=== PATIENT | male | born 1950 | race Caucasian/White ===

== ENCOUNTER 2022-04-05 07:43 | Emergency (ER) | payer OTHER, MEDICAID ==
[~2022-04-05] VITALS: Ht 175.3 cm; Wt 95.7 kg
[2022-04-05 07:52] VITALS: BP 162/72
== END 2022-04-05 09:24 | disposition home or self-care (01) ==
LOC: MED 07:43
DX: M25.562 Pain in left knee (principal); E11.9 Type 2 diabetes mellitus without complications; W19.XXXA Unspecified fall, initial encounter; Y93.89 Activity, other specified; Y92.89 Other specified places as the place of occurrence of the external cause; Y99.8 Other external cause status
CPT/HCPCS: 73562; 99283

== ENCOUNTER 2022-10-07 06:50 | Inpatient (IN) | payer OTHER, MEDICAID ==
[~2022-10-07] VITALS: Ht 167.6 cm; Wt 92.1 kg
--- NOTE | 2022-10-07 06:57 | NUR ---
PT BIBA BLS TO ER BED 12.
[2022-10-07 07:03] VITALS: BP 160/90
[2022-10-07] MEDS ORDERED: ONDANSETRON 4 MG/2 ML VIAL IVP ONE ×2 (07:05→07:10)
[2022-10-07] MEDS ORDERED: MORPHINE SULFATE 4 MG/ML SYR IVP ONE ×3 (07:05→08:10)
[2022-10-07] MEDS ORDERED: NACL 0.9% 500 ML IV ONE ×2 (07:05→07:10)
--- NOTE | 2022-10-07 07:18 | NUR ---
Patient lying in bed, A/Ox4, chest rise and fall symmetrical, no s/s of distress. Addendum: 10/07/22 at 0718 by [email or web address] Patient lying in bed, A/Ox4, chest rise and fall symmetrical, no s/s of distress, patient on monitor.
--- NOTE | 2022-10-07 07:30 | NUR ---
Received report from DORETHA Naqvi. Assumed care at this time.
--- NOTE | 2022-10-07 07:39 | NUR ---
Change of shift report given to AM shift nurse Kael COYNE. AM shift nurse Kael RN verbalized understanding of report, no further questions.
[2022-10-07 07:41] LABS: BASOPHILS % (AUTO) 0.3 % (0.0-2.0); EOSINOPHILS # (AUTO) 0.6 K/uL (0-0.4); EOSINOPHILS % (AUTO) 7.1 % (0.0-4.0); HEMATOCRIT 35.1 % (36-52); LYMPHOCYTES # (AUTO) 0.9 K/uL (2.0-11.5); LYMPHOCYTES % (AUTO) 11.2 % (20.5-51.1); MEAN CORPUSCULAR HEMOGLOBIN 31 pg (27-31); MEAN CORPUSCULAR HGB CONC 34 g/dL (33-37); MONOCYTES # (AUTO) 0.7 K/uL (0.8-1.0); MONOCYTES % (AUTO) 8.6 % (1.7-9.3); NEUTROPHILS # (AUTO) 5.8 K/uL (1.8-7.7); NEUTROPHILS % (AUTO) 72.8 % (42.2-75.2); PLATELET COUNT (AUTO) 131 K/uL (140-450); RED BLOOD CELL COUNT(AUTO) 3.85 MIL/uL (4.20-6.10); RED CELL DISTRIBUTION WIDTH 14.9 % (11.6-13.7); WHITE BLOOD COUNT (AUTO) 7.9 K/uL (4.8-10.8)
[2022-10-07 08:02] LABS: ANION GAP 12.9 (8-16); CARBON DIOXIDE 27.1 mmol/L (21-32); CREATININE 1.6 mg/dL (0.6-1.3); TOTAL BILIRUBIN 1.4 mg/dL (0.0-1.0)
[2022-10-07] MEDS ORDERED: ZOLPIDEM 10 MG TAB PO PRN (10:20)
[2022-10-07] MEDS ORDERED: DOCUSATE SODIUM 100 MG GELCAP PO PRN (10:20)
[2022-10-07] MEDS ORDERED: MAG SULF 2000 MG/WATER PREMIX 50 ML IV PRN (10:20)
[2022-10-07] MEDS ORDERED: POTASSIUM CHLORIDE 10 MEQ TABER PO PRN (10:20)
[2022-10-07] MEDS ORDERED: LORazepam 2 MG/ML VIAL IVP PRN (10:20)
[2022-10-07] MEDS ORDERED: ACETAMINOPHEN 325 MG TAB PO PRN (10:20)
[2022-10-07] MEDS ORDERED: ONDANSETRON 4 MG/2 ML VIAL IVP PRN (10:20)
[2022-10-07] MEDS ORDERED: MORPHINE SULFATE 2 MG/ML SYR IVP PRN (10:20)
[2022-10-07] MEDS ORDERED: DEXTROSE 50% 50 ML SYR IVP PRN (10:25)
[2022-10-07] MEDS ORDERED: ATOR40TA PO (10:43)
[2022-10-07] MEDS ORDERED: BENZ-379 PO (10:43)
[2022-10-07] MEDS ORDERED: CARV12.5 PO (10:47)
[2022-10-07] MEDS ORDERED: ERGO-30 PO (10:47)
[2022-10-07] MEDS ORDERED: FINA5TAB1 PO (10:47)
[2022-10-07] MEDS ORDERED: FERR325E14 PO (10:47)
--- NOTE | 2022-10-07 10:55 | NUR ---
Pt c/o pain, reports a 10/10 pain to R hip.
[2022-10-07] MEDS ORDERED: WARF-101 PO (11:05)
[2022-10-07] MEDS ORDERED: TEMA15CA24 PO (11:05)
[2022-10-07] MEDS ORDERED: TRAZ-343 PO (11:05)
[2022-10-07] MEDS ORDERED: HYDR-5191 PO (11:05)
[2022-10-07] MEDS ORDERED: WARF-83 PO (11:05)
[2022-10-07] MEDS ORDERED: INSU100I47 SQ (11:05)
[2022-10-07] MEDS ORDERED: [UNRECOGNIZED DRUG - CODE] PO (11:05)
[2022-10-07] MEDS ORDERED: PANT40EC PO (11:05)
[2022-10-07] MEDS ORDERED: FURO-570 PO (11:05)
[2022-10-07] MEDS ORDERED: INSU100S45 SUBQ (11:05)
[2022-10-07] MEDS ORDERED: WARF4TAB84 PO (11:05)
[2022-10-07] MEDS: BLOOD GLUCOSE MONITORING 1 DEV DEV FS SCH ×3 (11:47→20:06)
[2022-10-07] MEDS: INSULIN LISPRO SLIDING SCALE 100 UNITS/ML VIAL SUBQ PRN ×2 (11:53→16:51)
[2022-10-07] MEDS ORDERED: HYDROcodone/APAP 7.5/325 MG 1 TAB PO PRN (13:55)
--- NOTE | 2022-10-07 14:00 | NUR ---
Pt continues to c/o of severe pain, Dr. Strong made aware. Adjustment to pain management dosage will be made per Dr. Strong.
[2022-10-07] MEDS: MORPHINE SULFATE 4 MG/ML SYR IVP PRN ×2 (14:19→19:51)
--- NOTE | 2022-10-07 16:12 | NUR ---
Patient appears to be resting in bed. Vital Signs within normal limits. Respirations even and unlabored.
--- NOTE | 2022-10-07 17:21 | NUR ---
PATIENT HAS BEEN SCREENED AND CATEGORIZED MODERATE NUTRITION RISK. PATIENT WILL BE SEEN WITHIN 3-5 DAYS OF ADMISSION. REVIEWED BY YAJAIRA HUNG RD
--- NOTE | 2022-10-07 18:25 | NUR ---
Patient will be admitted to care of Dr. Strong. Admited to Med/Surg. Will go to room 107A. Belongings list completed. Report to DORETHA Wolf.
--- NOTE | 2022-10-07 18:30 | NUR ---
RECEIVED REPORT FROM ER NURSER FAUSTINO FOR CONTINUITY OF CARE. PT STABLE ON TRANSPORT. A&OX4, SKIN INTACT, RA , NON AMBULATORY USED A WHEELCHAIR AT [facility] AND IS ON A REGULAR DIET. PT HAS A 20G IV IN HIS LAC THAT IS SALINE LOCKED. PT USES A URINAL. ALL SAFETY MEASURES IN PLACE WITH CALL LIGHT WITHIN REACH. WILL CONTINUE TO MONITOR.
--- NOTE | 2022-10-07 19:05 | NUR ---
ENDORSED PT TO SLEEVE SEPARATOR NURSE FOR CONTINUITY OF CARE. PT STABLE.
--- NOTE | 2022-10-07 19:30 | NUR ---
RECEIVED REPORT FROM DAY SHIFT RN FOR CONTINUITY OF CARE. PT IS AWAKE AND ALERT. PT HAS BEEN UNCOOPERATIVE. DID NOT WANT TO BE CHANGED EARLIER IN DAY SHIFT. PT IS ON RA NOT IN ANY DISTRESS. PT HAS RIGHT AC 20 GAUGE. FOOD BY BEDSIDE. CALL LIGHT WITHIN REACH. WILL CONTINUE TO MONITOR PT.
--- NOTE | 2022-10-07 19:51 | NUR ---
PT WAS COMPLAINING OF PAIN ON RIGHT SIDE HIP 04/27. MORPHINE WAS GIVEN. NO OTHER COMPLAINS. WILL CONTINUE TO MONITOR THE PT.
[2022-10-07 20:00] VITALS: BP 162/59
[2022-10-07] MEDS: carvediloL 12.5 MG TAB PO SCH (20:03)
--- NOTE | 2022-10-07 23:29 | NUR ---
CHECKED ON PT AND ASKED IF HE WANTED TO BE CHANGED. PT REFUSED. PT IS STILL WEARING HOME CLOTHES AND REFUSES HOSPITAL GOWN. ASKED PT IF HE NEEDS ANYTHING. PT SAID NO. CALL LIGHT WITHIN REACH. WILL CONTINUE TO MONITOR THE PT.
--- NOTE | 2022-10-08 01:00 | NUR ---
OBSERVED PT. PT IS SLEEPING COMFORTABLY IN BED. PT IS NOT IN ANY RESPIRATORY DISTRESS. BED AT THE LOWEST POSITION. HEAD OF THE BED RAISED. WILL CONTINUE TO MONITOR THE PT.
[2022-10-08 04:00] VITALS: BP 164/63
[2022-10-08] MEDS: hydrALAZINE 20 MG/ML VIAL IVP PRN (04:45)
[2022-10-08] MEDS: MORPHINE SULFATE 4 MG/ML SYR IVP PRN ×4 (04:47→20:18)
--- NOTE | 2022-10-08 05:50 | NUR ---
MORPHINE WAS GIVEN EARLIER FOR 10/10 PAIN. TRIED TO CHANGE PT AFTERWARDS BUT PT REFUSED TO BE CHANGED. PT YELLS NO AND PUSHES AWAY. PT STATES HE IS CLEAN EVEN THOUGH HE IS SOILED. HE SAYS TO TRY LATER.
[2022-10-08] MEDS: INSULIN LISPRO SLIDING SCALE 100 UNITS/ML VIAL SUBQ PRN ×4 (06:31→20:14)
[2022-10-08] MEDS: BLOOD GLUCOSE MONITORING 1 DEV DEV FS SCH ×4 (06:37→20:10)
[2022-10-08 07:02] LABS: PROTHROMBIN TIME 27.5 secs (10.8-13.4)
[2022-10-08 07:09] LABS: ANION GAP 14.3 (8-16); CARBON DIOXIDE 23.7 mmol/L (21-32); CREATININE 1.3 mg/dL (0.6-1.3)
[2022-10-08 07:10] LABS: BASOPHILS # (AUTO) 0.1 K/uL (0.00-0.22); BASOPHILS % (AUTO) 0.7 % (0.0-2.0); EOSINOPHILS # (AUTO) 0.7 K/uL (0-0.4); EOSINOPHILS % (AUTO) 5.6 % (0.0-4.0); HEMATOCRIT 33.5 % (36-52); HEMOGLOBIN 11.9 g/dL (12.0-18.0); LYMPHOCYTES # (AUTO) 1.4 K/uL (2.0-11.5); LYMPHOCYTES % (AUTO) 12.3 % (20.5-51.1); MEAN CORPUSCULAR HEMOGLOBIN 31 pg (27-31); MEAN CORPUSCULAR HGB CONC 36 g/dL (33-37); MEAN CORPUSCULAR VOLUME 88.4 fL (80-94); MONOCYTES # (AUTO) 1.1 K/uL (0.8-1.0); MONOCYTES % (AUTO) 9.1 % (1.7-9.3); NEUTROPHILS # (AUTO) 8.4 K/uL (1.8-7.7); NEUTROPHILS % (AUTO) 72.3 % (42.2-75.2); PLATELET COUNT (AUTO) 167 K/uL (140-450); RED BLOOD CELL COUNT(AUTO) 3.79 MIL/uL (4.20-6.10); RED CELL DISTRIBUTION WIDTH 14.8 % (11.6-13.7); WHITE BLOOD COUNT (AUTO) 11.7 K/uL (4.8-10.8)
--- NOTE | 2022-10-08 07:20 | NUR ---
ENDORSED PT TO DAY SHIFT RN FOR CONTINUITY OF CARE. PT IS STABLE.
--- NOTE | 2022-10-08 07:21 | NUR ---
RECEIVED REPORT FROM TIMBER GIRDLER NURSE DARRION FOR CONTINUITY OF CARE. PT SLEEPING, EASILY AROUSABLE BY VERBAL STIMULI. RESPIRATIONS EVEN AND UNLABORED ON RA. BED SOILED WITH URINE, PER TIMBER GIRDLER NURSE PT HAD BEEN UNCOOPERATIVE AND DIDN'T WANT TO GET CHANGE. WILL ATTEMPT TO CLEAN AND DO MORNING CARE. CALL LIGHT WITHIN REACH. SAFETY PRECAUTIONS IN PLACE.
[2022-10-08 08:00] VITALS: BP 155/43
[2022-10-08] MEDS: ATORVASTATIN 20 MG TAB PO SCH (08:44)
[2022-10-08] MEDS: carvediloL 12.5 MG TAB PO SCH ×2 (08:44→20:11)
--- NOTE | 2022-10-08 08:50 | NUR ---
ADMINISTERED DUE MEDS. PT TOLERATED WELL.
--- NOTE | 2022-10-08 10:26 | NUR ---
ATTEMPTED TO DO MORNING CARE WITH SUPERVISOR FUR FLOOR WORKER BUT PT REFUSED. PT DIDN'T WANT TO GET CLEANED AND CHANGED. PT STILL IN REGULAR CLOTHES, REFUSED TO WEAR GOWN. RISKS AND BENEFITS EXPLAINED. DORETHA GAMBLE HELPED EXPLAINED. BUT PT YELLED AND ASKED ALL STAFF TO GO OUT OF HIS ROOM AND LEAVE HIM ALONE.
--- NOTE | 2022-10-08 12:00 | NUR ---
SLIDING SCALE INSULIN ADMINISTERED FOR BS-210.
--- NOTE | 2022-10-08 15:52 | NUR ---
SPOKE TO DR SHOOK. PER DR SHOOK, INR STILL HIGH. PROCEDURE POSSIBLE ON MONDAY ONCE INR GOES DOWN.
[2022-10-08 16:00] VITALS: BP 154/67
--- NOTE | 2022-10-08 16:53 | NUR ---
SLIDING SCALE INSULIN ADMINISTERED FOR BS 180. PT STILL REFUSING TO GET CLEAN AND CHANGED. PT STATED "I'M NOT DIRTY, I DON'T NEED TO BE CLEANED." OFFERED TWICE. PT DOESN'T WANT TO GET TOUCHED. WENT BACK TO SLEEP.
--- NOTE | 2022-10-08 19:12 | NUR ---
ENDORSED PT TO FILM WAXER NURSE ABENA FOR CONTINUITY OF CARE. ALL NEEDS MET THROUGHOUT SHIFT. PT IS IN STABLE CONDITION.
--- NOTE | 2022-10-08 19:15 | NUR ---
RECEIVED PATIENT LYING ON THE BED, IS AWAKE, ALERT AND ORIENTED, ANSWERS QUESTIONS APPROPRIATELY. DENIES PAIN AT THIS TIME, BREATHING EVEN AND NON LABORED ON ROOM AIR. IV ACCESS SITE ON RIGHT AC, SALINE LOCK, PATENT, FLUSH WITHOUT DIFFICULTY. PATIENT REFUSED TO BE CHANGE INTO GOWN, DON'T WANT LINENS CHANGE. ALL SAFETY PRECAUTIONS IN PLACE.
[2022-10-08 20:00] VITALS: BP 155/66
--- NOTE | 2022-10-08 20:18 | NUR ---
SCHEDULED MEDICATIONS GIVEN ORDERED. PRN MORPHINE GIVEN FOR 9/10 PAIN ON RIGHT HIP. BP 155/66. SAFETY MEASURES IN PLACE. WILL CONTINUE TO MONITOR THE PATIENT.
--- NOTE | 2022-10-09 02:05 | NUR ---
PATIENT IS ASLEEP, BREATHING EVEN AND NON LABORED ON ROOM AIR, NO SIGNS OF PAIN NOTED. CALL LIGHT WITHIN REACH, BED IN LOW AND LOCKED POSITION.
[2022-10-09 04:00] VITALS: BP 140/80
[2022-10-09] MEDS: MORPHINE SULFATE 4 MG/ML SYR IVP PRN ×5 (04:58→23:24)
--- NOTE | 2022-10-09 04:58 | NUR ---
PATIENT C/O 9 PAIN ON RIGHT HIP, PRN MORPHINE GIVEN ORDERED, BP 140/80. PATIENT REFUSED TO LET THIS STAFF AND PRIMARY DIAMOND BLENDER DO MORNING CARE STATED" I AM OKAY, I AM COMFORTABLE, I DON'T NEED TO BE CHANGE". ALL SAFETY MEASURES IN PLACE.
[2022-10-09] MEDS: BLOOD GLUCOSE MONITORING 1 DEV DEV FS SCH ×4 (06:33→20:53)
--- NOTE | 2022-10-09 07:23 | NUR ---
ENDORSED PATIENT TO DAY NURSE FOR CONTINUITY OF CARE. PATIENT IN STABLE CONDITION.
[2022-10-09 08:00] VITALS: BP 127/55
[2022-10-09] MEDS: carvediloL 12.5 MG TAB PO SCH ×2 (09:01→20:59)
[2022-10-09] MEDS: ATORVASTATIN 20 MG TAB PO SCH (09:01)
[2022-10-09 10:49] LABS: BASOPHILS % (AUTO) 0.3 % (0.0-2.0); EOSINOPHILS # (AUTO) 0.4 K/uL (0-0.4); EOSINOPHILS % (AUTO) 4.3 % (0.0-4.0); HEMATOCRIT 35.1 % (36-52); HEMOGLOBIN 11.9 g/dL (12.0-18.0); LYMPHOCYTES % (AUTO) 10.7 % (20.5-51.1); MEAN CORPUSCULAR HEMOGLOBIN 31 pg (27-31); MEAN CORPUSCULAR HGB CONC 34 g/dL (33-37); MEAN CORPUSCULAR VOLUME 91.5 fL (80-94); MONOCYTES % (AUTO) 10.8 % (1.7-9.3); NEUTROPHILS # (AUTO) 6.9 K/uL (1.8-7.7); NEUTROPHILS % (AUTO) 73.9 % (42.2-75.2); PLATELET COUNT (AUTO) 152 K/uL (140-450); PROTHROMBIN TIME 19.3 secs (10.8-13.4); RED BLOOD CELL COUNT(AUTO) 3.84 MIL/uL (4.20-6.10); RED CELL DISTRIBUTION WIDTH 14.7 % (11.6-13.7); WHITE BLOOD COUNT (AUTO) 9.4 K/uL (4.8-10.8)
[2022-10-09 10:52] LABS: ANION GAP 10.6 (8-16); CARBON DIOXIDE 29.1 mmol/L (21-32); CREATININE 1.5 mg/dL (0.6-1.3); POTASSIUM 4.7 mmol/L (3.5-5.1)
[2022-10-09] MEDS: INSULIN LISPRO SLIDING SCALE 100 UNITS/ML VIAL SUBQ PRN ×3 (12:10→20:56)
[2022-10-09 16:00] VITALS: BP 113/57
[2022-10-09] MEDS ORDERED: LOVENOX 1MG/KG Q12H SUBQ SCH (17:55)
[2022-10-09] MEDS: ENOXAPARIN 100 MG/ML SYR SUBQ SCH (18:30)
--- NOTE | 2022-10-09 19:33 | NUR ---
ENDORSE PATIENT IN STABLE CONDITION TO PM SHIFT NURSE. MOST RECENT MORPHINE GIVEN AT 1718 VIA RAC SALINE LOCK. PATIENT IS NPO AFTER MIDNIGHT PER DR. BOUCHRA LION
--- NOTE | 2022-10-09 19:35 | NUR ---
RECEIVED PATIENT LYING ON THE BED, NO SIGNS OF DISTRESS NOTED, IV ACCESS SITE ON RIGHT AC, PATENT AND INTACT. CALL LIGHT WITHIN REACH.
--- NOTE | 2022-10-09 21:00 | NUR ---
SCHEDULED MEDICATIONS GIVEN ORDERED
--- NOTE | 2022-10-10 | NUR ---
ORDER FOR PTT @0600. PATIENT IS NPO AFTER MIDNIGHT. INFORMED PATIENT, PT VERBALIZED UNDERSTANDING. SAFETY MEASURES IN PLACE.
[2022-10-10 04:00] VITALS: BP 132/62
[2022-10-10] MEDS: MORPHINE SULFATE 4 MG/ML SYR IVP PRN ×5 (05:38→23:06)
--- NOTE | 2022-10-10 05:38 | NUR ---
PRN MORPHINE GIVEN, PATIENT C/O PAIN ON RIGHT HIP. BP 155/74. PATIENT STILL REFUSING BEDSIDE CARE. ALL SAFETY MEASURES IN PLACE.
[2022-10-10] MEDS: BLOOD GLUCOSE MONITORING 1 DEV DEV FS SCH ×4 (06:39→23:17)
[2022-10-10] MEDS: INSULIN LISPRO SLIDING SCALE 100 UNITS/ML VIAL SUBQ PRN ×4 (06:40→23:25)
--- NOTE | 2022-10-10 07:20 | NUR ---
ENDORSED PATIENT TO DAY NURSE FOR CONTINUITY OF CARE. NEEDS MET THROUGHOUT THE SHIFT. PATIENT IN STABLE CONDITION.
[2022-10-10 07:34] LABS: BASOPHILS # (AUTO) 0.1 K/uL (0.00-0.22); BASOPHILS % (AUTO) 0.7 % (0.0-2.0); EOSINOPHILS # (AUTO) 0.4 K/uL (0-0.4); HEMATOCRIT 33.7 % (36-52); HEMOGLOBIN 11.5 g/dL (12.0-18.0); LYMPHOCYTES # (AUTO) 1.5 K/uL (2.0-11.5); LYMPHOCYTES % (AUTO) 17.2 % (20.5-51.1); MEAN CORPUSCULAR HEMOGLOBIN 31 pg (27-31); MEAN CORPUSCULAR HGB CONC 34 g/dL (33-37); MONOCYTES # (AUTO) 1.1 K/uL (0.8-1.0); MONOCYTES % (AUTO) 12.2 % (1.7-9.3); NEUTROPHILS # (AUTO) 5.7 K/uL (1.8-7.7); NEUTROPHILS % (AUTO) 64.9 % (42.2-75.2); PLATELET COUNT (AUTO) 168 K/uL (140-450); RED CELL DISTRIBUTION WIDTH 14.8 % (11.6-13.7); WHITE BLOOD COUNT (AUTO) 8.7 K/uL (4.8-10.8)
[2022-10-10 07:37] LABS: ANION GAP 11.8 (8-16); CREATININE 1.4 mg/dL (0.6-1.3); POTASSIUM 3.8 mmol/L (3.5-5.1)
[2022-10-10 08:00] VITALS: BP 159/72
[2022-10-10 08:08] LABS: PROTHROMBIN TIME 16.9 secs (10.8-13.4)
[2022-10-10] MEDS: ENOXAPARIN 100 MG/ML SYR SUBQ SCH (09:00)
[2022-10-10] MEDS: ATORVASTATIN 20 MG TAB PO SCH (09:36)
[2022-10-10] MEDS: carvediloL 12.5 MG TAB PO SCH ×2 (09:37→23:05)
[2022-10-10] MEDS ORDERED: ENOXAPARIN 100 MG/ML SYR SUBQ SCH (13:15)
--- NOTE | 2022-10-10 19:41 | NUR ---
ENDORSE PATIENT IN STABLE CONDITION TO PM SHIFT NURSE. MOST RECENT MORPHINE GIVEN AT 185 VIA RAC SALINE LOCK. PATIENT IS NPO AFTER MIDNIGHT FOR TOMORROW'S ORIF
--- NOTE | 2022-10-10 23:33 | NUR ---
MORPHINE 4MG GIVEN ORDERED AT 2306. ALMOST IMMEDIATELY AFTER RECEIVING DOSE PT RAISED HIS VOICE AND SAID "WHERE'S THE MORPHINE?" AND ACCUSED NURSE OF NOT GIVING HIM HIS MORPHINE. BY THIS CURRENT TIME PT CONTINUED TO ACCUSE NURSE OF NOT GIVING HIM HIS MORPHINE. PT POINTED TO HIS HEAD AND SAID: "I'M NOT GOING CRAZY. I'M SMART. 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
[2022-10-11] VITALS (8 sets, daily range): BP systolic 132–183; BP diastolic 35–60
--- NOTE | 2022-10-11 01:24 | NUR ---
PT REQUESTING PAIN MEDICATION AGAIN. WITH WITNESS PRESENT, PT WAS GIVEN NORCO (MORPHINE NOT YET DUE). PT REPEATED SEVERAL TIMES WHAT MEDICATION HE WAS RECEIVING FOR PAIN. PT TOOK MEDICATION W/O INCIDENT.
[2022-10-11] MEDS: MORPHINE SULFATE 4 MG/ML SYR IVP PRN ×3 (04:28→22:12)
--- NOTE | 2022-10-11 04:51 | NUR ---
PT C/O PAIN 05/28. PT MEDICATED (W WITNESS PRESENT AND REMINDING PT THAT HE IS RECEIVING MORPHINE 4 MG) W MORPHINE 4 MG ORDERED FOR PAIN MANAGEMENT.
--- NOTE | 2022-10-11 07:05 | NUR ---
RECEIVED REPORT FROM PILING CUTTER NURSE FOR CONTINUITY OF CARE. PT STABLE AT THIS TIME.
[2022-10-11 07:22] LABS: BASOPHILS # (AUTO) 0.1 K/uL (0.00-0.22); BASOPHILS % (AUTO) 0.7 % (0.0-2.0); EOSINOPHILS # (AUTO) 0.3 K/uL (0-0.4); EOSINOPHILS % (AUTO) 3.5 % (0.0-4.0); HEMATOCRIT 31.8 % (36-52); LYMPHOCYTES # (AUTO) 1.5 K/uL (2.0-11.5); LYMPHOCYTES % (AUTO) 15.7 % (20.5-51.1); MEAN CORPUSCULAR HEMOGLOBIN 31 pg (27-31); MEAN CORPUSCULAR HGB CONC 35 g/dL (33-37); MEAN CORPUSCULAR VOLUME 89.8 fL (80-94); MONOCYTES # (AUTO) 1.3 K/uL (0.8-1.0); MONOCYTES % (AUTO) 13.8 % (1.7-9.3); NEUTROPHILS # (AUTO) 6.4 K/uL (1.8-7.7); NEUTROPHILS % (AUTO) 66.3 % (42.2-75.2); PLATELET COUNT (AUTO) 187 K/uL (140-450); RED BLOOD CELL COUNT(AUTO) 3.54 MIL/uL (4.20-6.10); RED CELL DISTRIBUTION WIDTH 14.5 % (11.6-13.7); WHITE BLOOD COUNT (AUTO) 9.7 K/uL (4.8-10.8)
[2022-10-11 07:27] LABS: ANION GAP 13.3 (8-16); CARBON DIOXIDE 23.8 mmol/L (21-32); CREATININE 1.3 mg/dL (0.6-1.3); POTASSIUM 4.1 mmol/L (3.5-5.1)
[2022-10-11] MEDS: BLOOD GLUCOSE MONITORING 1 DEV DEV FS SCH ×4 (07:33→21:58)
[2022-10-11 08:10] LABS: PROTHROMBIN TIME 13.7 secs (10.8-13.4)
--- NOTE | 2022-10-11 08:25 | NUR ---
PT WAS PICKED UP BY SURGERY FOR HIS PROCEDURE. PT STABLE. MORNING MEDICATION WAS NOT GIVEN DUE TO PT BEING NPO.
[2022-10-11] MEDS: ATORVASTATIN 20 MG TAB PO SCH (09:00)
[2022-10-11] MEDS: carvediloL 12.5 MG TAB PO SCH ×2 (09:00→21:55)
[2022-10-11] MEDS ORDERED: HYDROmorphone PFS 2 MG/ML SYR ONE (09:20)
[2022-10-11] MEDS ORDERED: MIDAZOLAM 2 MG/2 ML VIAL ONE (09:21)
[2022-10-11] MEDS ORDERED: SODIUM 10 ML ONE ×2 (09:22→09:27)
[2022-10-11] MEDS ORDERED: BUPIVACAINE-MPF 0.25% 30 ML VIAL INJ ONE (10:17)
[2022-10-11] MEDS ORDERED: LIDOCAINE/EPI MPF 2%1:200000 10 ML VIAL INJ ONE (10:17)
[2022-10-11] MEDS ORDERED: TRANEXAMIC ACID 1,000 MG/10 ML VIAL ONE (11:22)
[2022-10-11] MEDS ORDERED: VANCOMYCIN 1,000 MG VIAL ONE (11:53)
[2022-10-11] MEDS ORDERED: ENOXAPARIN 40 MG/0.4 ML SYR SUBQ SCH ×2 (12:00)
[2022-10-11] MEDS ORDERED: PROPOFOL 200 MG/20 ML VIAL IV ONE (12:01)
[2022-10-11] MEDS ORDERED: ONDANSETRON 4 MG/2 ML VIAL ONE (12:03)
[2022-10-11] MEDS ORDERED: ROCURONIUM 50 MG/5 ML VIAL IV ONE ×2 (12:03)
[2022-10-11] MEDS ORDERED: SUGAMMADEX SODIUM 200 MG/2 ML VIAL IV ONE (12:04)
[2022-10-11] MEDS ORDERED: EPINEPHrine 1 MG/ML AMP ONE (12:20)
--- NOTE | 2022-10-11 13:00 | NUR ---
PT TRANSFERRED VIA BED FROM OR. PT AWAKE AND ALERT. A LINE TO RT WRIST, IV TO RT AC 20 G. ROOM AIR. VS STABLE.
[2022-10-11] MEDS ORDERED: MEPERIDINE 25 MG/ML SYR IVP PRN (13:10)
[2022-10-11] MEDS ORDERED: ONDANSETRON 4 MG/2 ML VIAL IVP PRN (13:10)
[2022-10-11] MEDS: HYDROmorphone 1 MG/ML AMP IVP PRN ×2 (13:22→18:34)
--- NOTE | 2022-10-11 13:35 | NUR ---
DC PLANNING LATE ENTRY PT SEEN ON 10/10/22 AT 1030AM AGATA MET WITH PT AND PTS SISTER HUGH CORTÉS AT BEDSIDE TO COMPLETE ASSESSMENT. PT REPORTS RESIDING AT [facility] SINCE MARCH 09.' PT IDENTIFIED HUGH CORTÉS, SISTER, EMERGENCY CONTACT. HUGH REPORTS BEING PTS ONLY RELATIVE AND REQUESTING SW TO SIGN [facility] DIRECTIVE. AGATA SPOKE TO PT AND HUGH AND INFORMED THEM BOTH THAT SW IS NOT A NOTARY AND A NOTARY MUST BE CONTACTED, HUGH REPORTS SHE "WILL NOT PAY FOR A NOTARY TO TRAVEL." HUGH REQUESTING SW SIGN WITNESS, INFORMED BOTH PT AND HUGH UNABLE TO SIGN WITNESS. HUGH VERBALIZED UNDERSTANDING. HUGH REPORTS SHE BELIEVES AD IN PLACE WITH [facility], AGATA ENCOURAGED HUGH TO CONTACT ELIZABETH REGINALDO FOR COPY. HUGH REPORTS SHE IS NOT GOING TO CALL ELIZABETHBISHOP HAIR BC SHE IS "TOO STRESSED TO HANDLE ANY OF THIS". AGATA REPORTS SHE WILL CONTACT ANTHONY TOO INQUIRE ON AD IN PLACE HOWEVER, WAS DOING SO A COURTESY. AGATA ENCOURAGED PT OR HUGH TO CALL [employer] AND REQUEST COPY OF AD, WHEN ABLE TO DO SO. PT IS REPORTED TO BE MEDICATION COMPLIANT AND HAS MEDICATION DELIVERED TO ASSISTED LIVING FACILITY. AT BASELINE PT IS REPORTED TO UTILIZE FWW, W/C AND IS COMPLETES ADL'S INDEPENDENTLY. PT HAS HX OF DIABETES THAT IS REPORTED TO BE WELL MANAGED. TENTATIVE DC PLAN IS FOR PT TO RETURN TO WHEN MEDICALLY STABLE UNLESS RECOMMENDED OTHERWISE BY PHYSICIAN. 10/11/22 1325 OUTREACHED TO ANTHONY HUNG [phone] TO INQUIRE IF ADV ON FILE HOWEVER, NO ANSWER. MESSAGE LEFT REQUESTING A RETURN PHONE CALL. Addendum: 10/11/22 at 1340 by Danny SERRANO Amended: Links added.
[2022-10-11] MEDS: hydrALAZINE 20 MG/ML VIAL IVP PRN (13:37)
--- NOTE | 2022-10-11 14:25 | NUR ---
ATTEMPTED TO SEE PATIENT FOR PHYSICAL THERAPY EVALUATION HOWEVER PATIENT NOT APPROPRIATE PER FORGING ROLL OPERATOR. RECENTLY RECEIVED TO ICU S/P SURGERY. WILL FOLLOW UP TOMORROW IF APPROPRIATE.
--- NOTE | 2022-10-11 15:40 | NUR ---
RECEIVED REPORT VIA PHONE FROM LINDSEY COYNE. PT ALERT AND ORIENTED. ROOM AIR. PACEMAKER IN PLACE. NPO. URINAL IN USE. GENERALIZED WEAKNESS. SKIN INTACT. IV TO RT AC 20 G, CLAMPED.
--- NOTE | 2022-10-11 16:02 | NUR ---
10/11/22 RD INITIAL ASSESSMENT COMPLETED PLEASE REFER TO NUTRITION ASSESSMENT UNDER CARE ACTIVITY FOR ESTIMATED NUTRITIONAL NEEDS. 1. RECOMMEND ADDING CCHO 60GM TO CARDIAC DIET 2. RECOMMEND GLUCERNA 1/DAY TO HELP INCREASE PO INTAKE - PROVIDES 220 KCAL AND 10 GM PROTEIN DAILY 3. MONITOR PO INTAKE, GI SYMPTOMS, AND NUTRITION RELATED LAB VALUES 4. RD TO FOLLOW-UP 3-5 DAYS, MODERATE RISK REVIEWED BY YAJAIRA HUNG RD
[2022-10-11] MEDS: INSULIN LISPRO SLIDING SCALE 100 UNITS/ML VIAL SUBQ PRN ×2 (17:06→22:00)
--- NOTE | 2022-10-11 18:33 | NUR ---
HYDROMORPHONE PARTIAL DOSE NEEDED. WASTED, 0.5 MG IVP GIVEN TO PT.
--- NOTE | 2022-10-11 19:14 | NUR ---
ENDORSED TO LOAN ADVISER ALVA RN FOR CONTINUITY OF CARE. ALL QUESTION ANSWERED.
--- NOTE | 2022-10-11 19:45 | NUR ---
RECEIVED PT. FROM DAY SHIFT RNKAYLEY. PT. WIDE AWAKE, ALERT WITH PERIOD OF CONFUSION. PT. ABLE TO EXPRESS NEEDS. PT. S/P RIGHT HIP TONEY-ARTHROPLASTY, DRESSING INTACT. BILATERAL LUNGS SOUNDS RONCHI. PT. ON ROOM AIR, O2 SAT 100%. HR 60, ATRIAL FIBRILLATION WITH VENTRICULAR PACED RHYTHM ON THE MONITOR. IV TO RIGHT AC 20G, NO S/S OF INFILTRATION, CAPPED AND FLUSHED. WITH RIGHT WRIST ATRIAL LINE INTACT. ON A CARDIAC DIET ORDERED. AWAN CATHETER TO GRAVITY WITH CLEAR ZABRINA COLOR URINE. MAKE ALL NEEDS KNOWN. NO S/S OF PAIN AT THIS TIME. WILL CONT. TO MONITOR.
[2022-10-11] MEDS: ENOXAPARIN 100 MG/ML SYR SUBQ SCH (21:55)
[2022-10-12] VITALS (11 sets, daily range): BP systolic 145–163; BP diastolic 31–60
--- NOTE | 2022-10-12 04:00 | NUR ---
ASKED PT. IF HE WANTS TO BE CLEANED AND PT. STRONGLY REFUSED.
--- NOTE | 2022-10-12 04:09 | NUR ---
LAB REPORTED THAT PT. REFUSED TO HAVE A BLOOD DRAWN. WILL ENDORSE TO THE NEXT SHIFT.
[2022-10-12] MEDS: MORPHINE SULFATE 4 MG/ML SYR IVP PRN ×3 (05:00→18:24)
--- NOTE | 2022-10-12 06:57 | NUR ---
OFERRED PT. TO PROVIDE PERSONAL/HYGIENE CARE BUT PT. REFUSED.
--- NOTE | 2022-10-12 07:30 | NUR ---
Received pt awake and alert. No signs of respiratory distress on room air. Pt with pacemaker on left upper chest with paced rhythm. Abd soft and nondistended. Jimenez catheter intact and draining to gravity. Peripheral IV 20 gauge on right AC intact and infusing NS@2ml/hr. Arterial line on right wrist flushed. Safety precautions in place.
--- NOTE | 2022-10-12 07:37 | NUR ---
REPORT GIVEN TO DAY SHIFT DORETHA LEVI FOR CONTINUITY OF CARE.
[2022-10-12] MEDS: BLOOD GLUCOSE MONITORING 1 DEV DEV FS SCH ×4 (07:41→20:37)
[2022-10-12] MEDS: INSULIN LISPRO SLIDING SCALE 100 UNITS/ML VIAL SUBQ PRN ×4 (07:43→20:38)
--- NOTE | 2022-10-12 07:48 | NUR ---
Seen and examined by Dr. Strong. No new orders.
[2022-10-12] MEDS: ATORVASTATIN 20 MG TAB PO SCH ×2 (08:04→08:09)
[2022-10-12] MEDS: carvediloL 12.5 MG TAB PO SCH ×3 (08:04→20:30)
--- NOTE | 2022-10-12 08:20 | NUR ---
Milagros Matthews called and gave updates. All questions answered.
[2022-10-12 08:23] LABS: ANION GAP 13.8 (8-16); CARBON DIOXIDE 20.2 mmol/L (21-32); CREATININE 1.3 mg/dL (0.6-1.3)
[2022-10-12 08:44] LABS: BASOPHILS % (AUTO) 0.4 % (0.0-2.0); EOSINOPHILS % (AUTO) 0.4 % (0.0-4.0); HEMOGLOBIN 8.8 g/dL (12.0-18.0); LYMPHOCYTES # (AUTO) 0.6 K/uL (2.0-11.5); LYMPHOCYTES % (AUTO) 5.7 % (20.5-51.1); MEAN CORPUSCULAR HEMOGLOBIN 31 pg (27-31); MEAN CORPUSCULAR HGB CONC 34 g/dL (33-37); MEAN CORPUSCULAR VOLUME 90.8 fL (80-94); MONOCYTES # (AUTO) 1.4 K/uL (0.8-1.0); MONOCYTES % (AUTO) 12.6 % (1.7-9.3); NEUTROPHILS # (AUTO) 9.2 K/uL (1.8-7.7); NEUTROPHILS % (AUTO) 80.9 % (42.2-75.2); PLATELET COUNT (AUTO) 155 K/uL (140-450); RED BLOOD CELL COUNT(AUTO) 2.87 MIL/uL (4.20-6.10); RED CELL DISTRIBUTION WIDTH 14.6 % (11.6-13.7); WHITE BLOOD COUNT (AUTO) 11.4 K/uL (4.8-10.8)
[2022-10-12] MEDS: ENOXAPARIN 100 MG/ML SYR SUBQ SCH ×2 (09:20→20:18)
[2022-10-12] MEDS: PIPERACILLIN/TAZOBACTAM 3.375 GM in DEXTROSE 5% 50 ML IV SCH ×2 (12:24→20:31)
--- NOTE | 2022-10-12 12:55 | NUR ---
Dr. Roach at bedside examining patient. New orders received. Addendum: 10/12/22 at 1354 by Minnie Palacio RN Per josh Jorge to discontinue A-line if blood pressure is correlating. Blood pressure cuff on left arm and correlating with A-line blood pressure.
[2022-10-12] MEDS ORDERED: hydrALAZINE 20 MG/ML VIAL IVP PRN (13:05)
--- NOTE | 2022-10-12 16:45 | NUR ---
Transferred pt via bed to tele [id number]. Report given to Alice. All questions answered.
--- NOTE | 2022-10-12 16:59 | NUR ---
GOT REPORT FROM THE ICU NURSE, PT STABLE, REORIENTED HIM TO TO HOSPITAL ROOM, VS OBTAINED.[id number]
--- NOTE | 2022-10-12 20:00 | NUR ---
PATIENT IN BED RESTING WATCHING TV ON ROOM AIR. NO S/S OF RESPIRATORY DISTRESS. RESPIRATION REGULAR NON LABORED. NO COMPLAINTS OF PAIN AT THIS TIME. IV ACCESS ON THE RAC 20 GAUGE SALINE LOCK. CALL LIGHT WITHIN REACH. SAFETY MEASURES IN PLACE.
--- NOTE | 2022-10-12 20:30 | NUR ---
ALL 2100 SCHEDULED DUE MEDICATIONS ADMINISTERED.
[2022-10-13] VITALS (7 sets, daily range): BP systolic 108–146; BP diastolic 48–66
[2022-10-13] MEDS: PIPERACILLIN/TAZOBACTAM 3.375 GM in DEXTROSE 5% 50 ML IV SCH ×3 (04:50→20:28)
[2022-10-13] MEDS: MORPHINE SULFATE 4 MG/ML SYR IVP PRN ×4 (05:49→20:44)
--- NOTE | 2022-10-13 05:49 | NUR ---
COMPLAINED OF SEVERE RIGHT HIP PAIN, MEDICATED WITH MORPHINE IVP PRN
[2022-10-13] MEDS: INSULIN LISPRO SLIDING SCALE 100 UNITS/ML VIAL SUBQ PRN ×4 (06:39→20:35)
[2022-10-13] MEDS: BLOOD GLUCOSE MONITORING 1 DEV DEV FS SCH ×4 (06:39→20:21)
--- NOTE | 2022-10-13 07:13 | NUR ---
GAVE REPORT TO AM SHIFT NURSE VIDYA FOR CONTINUITY OF CARE.
--- NOTE | 2022-10-13 07:30 | NUR ---
ENDORSED PATIENT FROM APRON MAN NURSE.PATIENT IS SLEEPING.HE IS AWAKE AND ORIENTED.POC DISCUSSED.WILL CONTINUE TO MONITOR
[2022-10-13] MEDS: carvediloL 12.5 MG TAB PO SCH ×2 (09:57→20:29)
[2022-10-13] MEDS: ATORVASTATIN 20 MG TAB PO SCH (09:58)
[2022-10-13] MEDS ORDERED: ZOS2.25PM IV (10:01)
[2022-10-13] MEDS: ENOXAPARIN 100 MG/ML SYR SUBQ SCH ×2 (10:01→20:37)
--- NOTE | 2022-10-13 11:29 | NUR ---
DC PLANNING: FAXED THE ORDER TO [facility] [phone] CALLED ESTHER STREETER AT [email or web address] [phone] LEFT A MESSAGE. FAXED TO [facility] CM TO FOLLOW Addendum: 10/14/22 at 1211 by Brittany Vines RN DC PLANNING: RECEIVED A CALL FROM [email or web address] FERDINAND SPOKE WITH TERA PADILLA [facility] IS NOT CONTRACTED WITH [email or web address]. SHE PROVIDE THE AUTH FOR SNF AND TRANSPORT [facility] ACCEPTED PATIENT CAN GO TO ROOM 21B # TO GIVE REPORT [phone] ARRANGED TRANSPORT WITH [facility] DIAL TIME BETWEEN 1:30 TO 2PM NOTIFIED KERRI GOLDMAN CM TO FOLLOW
--- NOTE | 2022-10-13 12:30 | NUR ---
DISCHARGE PLANNING ATTEMPTED TO CALL [facility]EN[employer] [facility] FROM [facility] AT TO CONFIRM THAT SHE RECEIVED PATIENT'S CLINICAL PACKAGE SEND TO HER PREVIOUSLY BY [facility] [employer] SEND TO HER 10/12/2022. NO RESPONSE TO THE SEVERAL CALLS 5X MADE BY AGATA. AGATA WAS NOT ABLE TO LEAVE A VOICE MAIL DUE TO VOICE MAIL BEEN FULL. Addendum: 10/13/22 at 1301 by Pari Pace AGATA DISCUSSED WITH POWER PLANT INSTALLER Emiliana Navarro THE LACK OF ABILITY TO COMMUNICATE WITH [employer], AND THE SEVERAL ATTEMPTS MADE TO CALL HER AND GET IN CONTACT WITH HER BUT NO RESPONSE AND NO ACCESS TO HER VOICE MAIL. POWER PLANT INSTALLER NEVAEH PROVIDED ALTERNATIVE NUMBER TO [employer] MAIN NUMBER TERA . AGATA WILL FOLLOW UP. Addendum: 10/13/22 at 1312 by Pari Pace AGATA ATTEMPTED TO CALL TERA AT [employer] MAIN LINE TO CONFIRM IF PATIENT'S CLINICAL PACKET THAT WAS SEND BY [facility] FERDINAND CHANDRA EARLIER WAS RECEIVED AND TO VERIFY IF [employer] CONTRACTS WITH [facility] TO OBTAIN [facility] APPROVAL. TERA DID NOT RESPONDED TO CALL AND AGATA LEFT HER A DETAIL MESSAGE WITH SW CONTACT. SW WILL FOLLOW UP NEEDED. Addendum: 10/13/22 at 1328 by Pari SERRANO TERA FROM [employer] CALL BACK AGATA TO DISCUSS PATIENT INFORMATION AND CONTRACT WITH [employer]. PER TERA CASE LIS. [facility] NOT [facility] WITH [facility]. AGATA ASK HER TO SEND A LIST OF ALL SNF/FACILITIES [employer] IS CONTACTED WITH AND ALSO TRANSPORT COMPANIES [employer] CONTRACTS WITH TO FACILITATE THE PLACEMENT OF PATIENT. TERA AGREED AND REQUEST FAX NUMBER. AGATA PROVIDED AND THANKED TERA FOR THE CALL GAATA/CM WILL FOLLOW UP NEEDED. Addendum: 10/13/22 at 1341 by Pari SERRANO DISCHARGE PLANNING FAXED PATIENT'S CLINICAL PACKET TO [facility] AT WITH COMPLETED CONFIRMATION AT ABOUT 13:40 SW WILL FOLLOW UP NEEDED. Addendum: 10/13/22 at 1940 by Pari Pace SW FAXED PATIENT'S CLINICAL PACKET TO [facility] WITH COMPLETED CONFIRMATION AT ABOUT 16:08 SW WILL FOLLOW UP NEEDED. AGATA FAXED PATIENT'S CLINICAL PACKET TO [facility] WITH COMPLETED CONFIRMATION AT ABOUT 16:12 SW WILL FOLLOW UP NEEDED.
--- NOTE | 2022-10-13 19:29 | NUR ---
ENDORSE PATIENT IN STABLE CONDITION TO PM SHIFT NURSE WHILE PIV SITE AT [facility] PATENT 20G SALINE LOCK. PATIENT IS DISCHARGING TO SNF. PLACEMENT PENDING
--- NOTE | 2022-10-13 19:30 | NUR ---
RECEIVED PATIENT LYING ON THE BED, NO SIGNS OF DISTRESS NOTED. IV SITE ON RIGHT AC, PATENT AND INTACT. ALL SAFETY MEASURES IN PLACE.
--- NOTE | 2022-10-13 20:44 | NUR ---
SCHEDULED MEDICATIONS GIVEN ORDERED. PRN MORPHINE GIVEN FOR C/0 9/10 PAIN ON RIGHT HIP. RIGHT HIP SURGICAL INCISION , CHRISTIANO INTACT. WILL CONTINUE TO MONITOR THE PATIENT.
[2022-10-14] VITALS: BP 136/57
[2022-10-14] MEDS: MORPHINE SULFATE 4 MG/ML SYR IVP PRN ×2 (02:16→09:18)
--- NOTE | 2022-10-14 02:16 | NUR ---
PRN MORPHINE GIVEN, PATIENT C/O / PAIN ON RIGHT HIP. BP 132/56. CALL LIGHT WITHIN REACH. SAFETY MEASURES IN PLACE.
[2022-10-14 04:00] VITALS: BP 132/62
[2022-10-14] MEDS: PIPERACILLIN/TAZOBACTAM 3.375 GM in DEXTROSE 5% 50 ML IV SCH ×2 (05:21→12:39)
[2022-10-14] MEDS: BLOOD GLUCOSE MONITORING 1 DEV DEV FS SCH ×2 (06:32→11:48)
[2022-10-14] MEDS: INSULIN LISPRO SLIDING SCALE 100 UNITS/ML VIAL SUBQ PRN ×2 (06:33→11:52)
--- NOTE | 2022-10-14 07:23 | NUR ---
ENDORSED PATIENT OT DAY NURSE FOR CONTINUITY OF CARE. NEEDS MET THROUGHOUT THE SHIFT. PATIENT IS IN STABLE CONDITION.
--- NOTE | 2022-10-14 07:24 | NUR ---
RECEIVED REPORT FROM [employer]S INTEGRATION SPECIALIST NURSE ABENA FOR CONTINUITY OF CARE. PT SLEEPING, EASILY AROUSABLE BY VERBAL STIMULI. RESPIRATIONS EVEN AND UNLABORED ON RA. ON COMMUNITY CASE MANAGER. AWAN CATHETER IN PLACE DRAINING TO GRAVITY. NOTED SURGICAL WOUND STAPLED KISHAN WITH NO DRAINAGE ON RIGHT HIP. CALL LIGHT WITHIN REACH. INITIAL ASSESSMENT DONE. POC DISCUSSED.SAFETY PRECAUTIONS IN PLACE.
[2022-10-14 08:00] VITALS: BP 143/66
[2022-10-14] MEDS ORDERED: HYDROmorphone 1 MG/ML AMP IVP PRN (08:45)
[2022-10-14] MEDS: ATORVASTATIN 20 MG TAB PO SCH (08:53)
[2022-10-14] MEDS: carvediloL 12.5 MG TAB PO SCH (08:54)
[2022-10-14] MEDS: ENOXAPARIN 100 MG/ML SYR SUBQ SCH (08:55)
--- NOTE | 2022-10-14 09:01 | NUR ---
ADMINISTERED DUE MEDS. PT TOLERATED WELL.
--- NOTE | 2022-10-14 10:18 | NUR ---
Patient's Plan of Care was discussed and reviewed with COST MANAGER:
--- NOTE | 2022-10-14 11:55 | NUR ---
SLIDING SCALE INSULIN ADMINISTERED FOR BS 288. PT COMPLAINING OF HIP PAIN 06/27. WILL INFORM DORETHA BORGES.
[2022-10-14 12:00] VITALS: BP 149/65
[2022-10-14 12:08] VITALS: BP 149/65
[2022-10-14 12:17] VITALS: BP 149/65
--- NOTE | 2022-10-14 13:08 | NUR ---
PT FOR DC TO [facility]. PICK-UP TIME 1:30-2PM. PT MADE AWARE. DC PAPERS DISCUSSED WITH THE PT. PT VERBALIZED UNDERSTANDING. KEEP FC PER DR CAST. CLEAN AND CHANGED PT DIAPER WITH GEODETIC TECHNICIAN. PT TOLERATED WELL. PT COMFORTABLY LYING IN BED. NO DISTRESS NOTED. AWAITING FOR PICK-UP.
--- NOTE | 2022-10-14 13:15 | NUR ---
REPORT GIVEN TO NURSE CESPEDES OF [facility].
--- NOTE | 2022-10-14 14:35 | NUR ---
PT DC TO [facility]. PT PICKED UP BY TRANSPORT STAFF AND TRANSPORTED VIA GURNEY. TELE MONITOR REMOVED. PT LEFT WITH FC, INTACT, DRAINING WELL AND IV LINE ON RAC 22G FOR ABX TO BE CONTINUED AT [facility]. ALL BELONGINGS TAKEN UPON DC. PT IS IN STABLE CONDITION.
== END 2022-10-14 15:16 | DRG 521 ==
LOC: MED 06:50 → MTU 09:28 → MIC 10-11 13:10 → MTU 10-12 16:45
PROVIDERS: ADMIT Family Medicine; ATTEND Family Medicine
PROC: 0SRR0JZ Replacement of Right Hip Joint, Femoral Surface with Synthetic Substitute, Open Approach (ICD-10-PCS; principal; 2022-10-11 09:00)
DX: S72.041A Displaced fracture of base of neck of right femur, initial encounter for closed fracture (principal); J69.0 Pneumonitis due to inhalation of food and vomit; J90 Pleural effusion, not elsewhere classified; I16.1 Hypertensive emergency; I48.92 Unspecified atrial flutter; N17.9 Acute kidney failure, unspecified; E83.51 Hypocalcemia; E11.65 Type 2 diabetes mellitus with hyperglycemia; I48.91 Unspecified atrial fibrillation; I51.7 Cardiomegaly; I25.5 Ischemic cardiomyopathy; I25.10 Atherosclerotic heart disease of native coronary artery without angina pectoris; E11.22 Type 2 diabetes mellitus with diabetic chronic kidney disease; I12.9 Hypertensive chronic kidney disease with stage 1 through stage 4 chronic kidney disease, or unspecified chronic kidney disease; N18.9 Chronic kidney disease, unspecified; E78.5 Hyperlipidemia, unspecified; Z20.822 Contact with and (suspected) exposure to COVID-19; Z95.1 Presence of aortocoronary bypass graft; Z91.199 Patient's noncompliance with other medical treatment and regimen due to unspecified reason
CPT/HCPCS: 36415; 71045; 72192; 73502; 80048; 80053; 82948; 83735; 85025; 85610; 85730; 86886; 86900; 86901; 86920; 87081; 88305; 88311; 93005; 96374; 96375; 96376; 97110; 97112; 97163-GP; 99285; C1776; J0171; J0360; J0690; J1170; J1650; J1815; J2001; J2060; J2250; J2270; J2405; J2543; J2704; J3370; J3475; J3490; J7030; J7060; Q0092

== ENCOUNTER 2024-06-14 21:45 | Emergency (ER) | payer OTHER, MEDICAID ==
[~2024-06-14] VITALS: Ht 175.3 cm; Wt 72.6 kg
[~2024-06-14 21:45] MED LIST: ATOR40TA PO; BENZ-379 PO; CARV12.5 PO; ERGO-30 PO; FINA-54 PO; FURO-570 PO; HYDR-5071 PO; INSU100I74 SQ; INSU100S45 SUBQ; PANT40EC PO; TEMA15CA24 PO; TRAZ-343 PO; WARF-101 PO; WARF-83 PO; WARF4TAB84 PO; [UNRECOGNIZED DRUG - CODE] IV; [UNRECOGNIZED DRUG - CODE] PO
[2024-06-14 21:46] VITALS: BP 164/70; PULSE 96; RESP 18; TEMP 98.8; O2SAT 96
[2024-06-14 22:50] LABS: BASOPHILS # (AUTO) 0.1 K/uL (0.00-0.22); BASOPHILS % (AUTO) 0.8 % (0.0-2.0); EOSINOPHILS # (AUTO) 0.2 K/uL (0-0.4); EOSINOPHILS % (AUTO) 2.3 % (0.0-4.0); HEMATOCRIT 34.4 % (36-52); HEMOGLOBIN 11.9 g/dL (12.0-18.0); LYMPHOCYTES # (AUTO) 1.6 K/uL (2.0-11.5); LYMPHOCYTES % (AUTO) 16.3 % (20.5-51.1); MEAN CORPUSCULAR HEMOGLOBIN 31 pg (27-31); MEAN CORPUSCULAR HGB CONC 34 g/dL (33-37); MEAN CORPUSCULAR VOLUME 90.7 fL (80-94); MONOCYTES # (AUTO) 0.6 K/uL (0.8-1.0); MONOCYTES % (AUTO) 6.2 % (1.7-9.3); NEUTROPHILS # (AUTO) 7.2 K/uL (1.8-7.7); NEUTROPHILS % (AUTO) 74.4 % (42.2-75.2); PLATELET COUNT (AUTO) 184 K/uL (140-450); RED BLOOD CELL COUNT(AUTO) 3.79 MIL/uL (4.20-6.10); RED CELL DISTRIBUTION WIDTH 16.1 % (11.6-13.7); WHITE BLOOD COUNT (AUTO) 9.7 K/uL (4.8-10.8)
[2024-06-14] MEDS: HYDROcodone/APAP 5/325 MG 1 TAB TAB PO ONE (22:54)
[2024-06-14 23:04] LABS: ANION GAP 9.5 (8-16); CALCIUM 9.1 mg/dL (8.5-10.1); CHLORIDE 95 mmol/L (98-107); CREATININE 2.1 mg/dL (0.6-1.3); POTASSIUM 3.5 mmol/L (3.5-5.1); SODIUM SERUM 130 mmol/L (136-145); UREA NITROGEN, BLOOD 34 mg/dL (7-18)
[2024-06-14 23:07] LABS: GLUCOSE 541 mg/dL (74-106)
[2024-06-14] MEDS: INSULIN LISPRO 100 UNITS/ML VIAL SUBQ ONE (23:37)
[2024-06-15 01:59] VITALS: TEMP 98.8
[2024-06-15] MEDS: guaiFENesin DM 200/20 MG-10 ML 10 ML UDC PO ONE (04:14)
[2024-06-15 04:26] VITALS: BP 155/60; PULSE 58; RESP 16; O2SAT 96
== END 2024-06-15 06:25 | disposition home or self-care (01) ==
LOC: MED 21:45
DX: E11.65 Type 2 diabetes mellitus with hyperglycemia (principal); R60.0 Localized edema; I11.0 Hypertensive heart disease with heart failure; I50.9 Heart failure, unspecified; Z95.0 Presence of cardiac pacemaker; Z79.899 Other long term (current) drug therapy; Z79.01 Long term (current) use of anticoagulants; Z79.4 Long term (current) use of insulin
CPT/HCPCS: 36415; 80048; 82948; 85025; 93970; 96372; 99285; J1815; Q0092

== ENCOUNTER 2024-07-06 23:20 | Emergency (ER) | payer OTHER, MEDICAID ==
[~2024-07-06] VITALS: Ht 175.3 cm; Wt 68.5 kg
[2024-07-06 23:22] VITALS: BP 190/89; PULSE 72; RESP 16; TEMP 97.2; O2SAT 97
[2024-07-06 23:52] LABS: BASOPHILS # (AUTO) 0.1 K/uL (0.00-0.22); BASOPHILS % (AUTO) 0.7 % (0.0-2.0); EOSINOPHILS # (AUTO) 0.3 K/uL (0-0.4); EOSINOPHILS % (AUTO) 2.6 % (0.0-4.0); HEMATOCRIT 34.2 % (36-52); HEMOGLOBIN 11.5 g/dL (12.0-18.0); LYMPHOCYTES # (AUTO) 1.5 K/uL (2.0-11.5); LYMPHOCYTES % (AUTO) 13.6 % (20.5-51.1); MEAN CORPUSCULAR HEMOGLOBIN 31 pg (27-31); MEAN CORPUSCULAR HGB CONC 34 g/dL (33-37); MEAN CORPUSCULAR VOLUME 93.2 fL (80-94); MONOCYTES # (AUTO) 0.9 K/uL (0.8-1.0); MONOCYTES % (AUTO) 8.7 % (1.7-9.3); NEUTROPHILS % (AUTO) 74.4 % (42.2-75.2); PLATELET COUNT (AUTO) 224 K/uL (140-450); RED BLOOD CELL COUNT(AUTO) 3.66 MIL/uL (4.20-6.10); WHITE BLOOD COUNT (AUTO) 10.8 K/uL (4.8-10.8)
[2024-07-06] MEDS: NACL 0.9% 1,000 ML IV ONE (23:55)
[2024-07-07 00:02] LABS: ANION GAP 10.1 (8-16); CALCIUM 9.2 mg/dL (8.5-10.1); CARBON DIOXIDE 28.6 mmol/L (21-32); CHLORIDE 96 mmol/L (98-107); CREATININE 1.7 mg/dL (0.6-1.3); GLUCOSE 384 mg/dL (74-106); POTASSIUM 4.7 mmol/L (3.5-5.1); SODIUM SERUM 130 mmol/L (136-145); UREA NITROGEN, BLOOD 25 mg/dL (7-18)
[2024-07-07] MEDS: INSULIN REGULAR, HUMAN 100 UNIT/ML VIAL IVP ONE (00:29)
[2024-07-07 03:40] VITALS: BP 190/89; PULSE 72; RESP 16; TEMP 97.2; O2SAT 97
== END 2024-07-07 03:48 ==
LOC: MED 23:20
DX: E11.65 Type 2 diabetes mellitus with hyperglycemia (principal); I11.0 Hypertensive heart disease with heart failure; I50.9 Heart failure, unspecified; Z95.0 Presence of cardiac pacemaker; Z79.899 Other long term (current) drug therapy; Z79.01 Long term (current) use of anticoagulants
CPT/HCPCS: 36415; 80048; 82948; 85025; 96361; 96374; 99283; J1815; J7030